=== PATIENT | female | born 1965 | race Asian ===

== ENCOUNTER 2018-01-19 10:16 | Emergency (ER) | payer MEDICAID ==
[~2018-01-19] VITALS: Ht 157.5 cm; Wt 145.1 kg
[2018-01-19] MEDS ORDERED: NKM (10:20)
--- NOTE | 2018-01-19 11:39 | Emergency Room Report ---
History of Present Illness General Chief Complaint: Generalized Weakness Source: Patient Present Illness HPI 52-year-old female brought in by EMS [place] after patient felt like she was going to faint Patient didn't eat breakfast today, didn't drink any water. She was getting off the bus outside and felt like vision was going dark and that she was in a passout however she denies she passed out. EMS states that glucose on scene was 70. She denies associated chest pain, shortness of breath , palpitations. No other known medical problems or family history of sudden cardiac Patient is not a smoker, and eyes history of anemia She does have asthma, and family history of emphysema She currently feels better, has been ambulated back and forth the bathroom in ER. Allergies: Coded Allergies: No Known Allergies (Unverified , 01/19/18) Patient History Past Surgical History: none Pertinent Family History: COPD Social History: Denies: smoking, alcohol use, drug use Now: No Immunizations: UTD Reviewed Nursing Documentation: PMH: Agreed, PSxH: Agreed Nursing Documentation-PMH Past Medical History: No Stated History Review of Systems All Other Systems: negative except mentioned in HPI Physical Exam Vital Signs Date Time Temp Pulse Resp B/P (MAP) Pulse Ox O2 Delivery O2 Flow Rate FiO2 01/19/18 10:14 97.6 90 18 163/96 98 Nasal Cannula 4.0 97.5 Sp02 EP Interpretation: reviewed, normal General Appearance: normal inspection, well appearing, no apparent distress, alert, GCS 15, non-toxic, obese Head: normocephalic, atraumatic Eyes: bilateral eye PERRL, bilateral eye EOMI ENT: normal ENT inspection, hearing grossly normal, normal pharynx, no angioedema, normal voice, TMs + canals normal, uvula midline, moist mucus membranes Neck: normal inspection, full range of motion, supple, thyroid normal, no meningismus, no bony tend Respiratory: normal inspection, lungs clear, normal breath sounds, no rhonchi, no respiratory distress, no retraction, no accessory muscle use, no wheezing, speaking full sentences Cardiovascular #1: regular rate, rhythm, no edema, no JVD, normal capillary refill Gastrointestinal: normal inspection, normal bowel sounds, non tender, soft, no mass, no peritonitis, non-distended, no guarding, no hernia, no pulsatile mass Genitourinary: no CVA tenderness Musculoskeletal: normal inspection, back normal, normal range of motion, no calf tenderness, pelvis stable, Kari's Sign negative Neurologic: normal inspection, alert, oriented x3, responsive, warehouse person III-XII nml as tested, motor strength/tone normal, cerebellar normal, normal gait, speech normal Psychiatric: normal inspection, judgement/insight normal, mood/affect normal, no suicidal/homicidal ideation, no delusions Skin: normal inspection, normal color, no rash Lymphatic: normal inspection, no adenopathy Medical Decision Making Diagnostic Impression: Primary Impression: Pre-syncope ER Course Vital signs stable, afebrile ECG is nonischemic, no arrhythmia or WPW or heart block Patient's blood sugar in ER is 101 - is no history of diabetes. Patient has asthma, however is not having asthma exacerbation. Vital signs stable, no history of anemia Likely presyncope from not eating breakfast this morning or drinking enough water Reassured patient ER course: Patient has remained stable during ED stay. Disposition: Patient is to be discharged to home. Patient is instructed to follow up with their primary care doctor within 5 days. Strict return precautions discussed with patient such as fever, chills, worsening/severe pain, nausea, vomiting, which may indicate severe illness. Patient verbalizes understanding and agrees with plan. Please note that this Emergency Department Report was dictated using [employer] specialist technology software, occasionally this can lead to erroneous entry secondary to interpretation by the dictation equipment EKG Diagnostic Results Rate: normal Rhythm: NSR ST Segments: no acute changes ASA given to the pt in ED: No Rhythm Strip Diag. Results EP Interpretation: yes Rate: 77 Rhythm: NSR, no PVC's, no ectopy Last Vital Signs Date Time Temp Pulse Resp B/P (MAP) Pulse Ox O2 Delivery O2 Flow Rate FiO2 01/19/18 10:14 97.6 90 18 163/96 98 Nasal Cannula 4.0 97.5 Status: improved Disposition: HOME, SELF-CARE DENNIS ARCOS M.D. Jan 19, 2018 11:39
[2018-01-19 11:59] VITALS: BP 175/72
[2018-01-19 12:00] VITALS: BP 175/72
== END 2018-01-19 12:02 | disposition home or self-care (01) ==
LOC: EDBD 10:16 → EMR 11:39
DX: R55 Syncope and collapse (principal); J44.9 Chronic obstructive pulmonary disease, unspecified
CPT/HCPCS: 82962; 99283